=== PATIENT | female | born 1960 | race Caucasian/White ===

== ENCOUNTER → 2017-07-04 10:47 | Outpatient (CLI) | payer OTHER, SELFPAY ==
--- NOTE | 2017-07-04 10:53 | US_ITS ---
STUDY: SUPERFICIAL ULTRASOUND - LEFT BUTTOCK REASON FOR EXAM: Female, 57 years old. PALP LUMP LEFT BUTTOCK PATIENT HAS AN AREA OF INDENTATION WITH A BRUISE AND PALP LUMP AT THE CENTER OF THE INDENTATION OF THE LEFT BUTTOCK TECHNIQUE: A superficial ultrasound was performed with real-time and static benjamin-scale imaging. COMPARISON: None. FINDINGS: There is no evidence to suggest abscess formation. There are no focal fluid collections. Subcutaneous soft tissue nodule is visualized measuring 12 x 4 mm. Second nodule is noted in the subcutaneous fat measuring 11 x 4.1 mm. US/Ext Non Vasc Limited/Soft Tiss IMPRESSION: At the area of the palpable abnormality there are 2 nodules. These have the appearance of lymph nodes. Electronically Signed: Toño Florence MD at 9:52 EST , Service support ,
== END ==
PROVIDERS: Family Provider Preventive Medicine Occupational Medicine; PCP Preventive Medicine Occupational Medicine; Visit Provider Preventive Medicine Occupational Medicine
DX: R22.2 Localized swelling, mass and lump, trunk (principal)
CPT/HCPCS: 76882

== ENCOUNTER → 2017-07-29 11:46 | Outpatient (CLI) | payer OTHER, SELFPAY ==
--- NOTE | 2017-07-29 11:51 | US_ITS ---
STUDY: SUPERFICIAL ULTRASOUND - LEFT BUTTOCK. REASON FOR EXAM: Female, 57 years old. Palpable abnormality for biopsy. TECHNIQUE: A superficial ultrasound was performed with real-time and static benjamin-scale imaging. COMPARISON: Comparison is made with prior sonogram dated July 04, 2017. FINDINGS: The patient was scheduled for percutaneous biopsy. The biopsy was canceled due to the proximity of blood vessels to the nodule. US/Ext Non Vasc Limited/Soft Tiss IMPRESSION: Canceled biopsy due to the proximity of vascular structures adjacent to the palpable nodule. Electronically Signed: Darell Pang MD at 11:14 EST Tel [phone], Service support ,
== END ==
PROVIDERS: Family Provider Preventive Medicine Occupational Medicine; PCP Preventive Medicine Occupational Medicine; Visit Provider Surgery
DX: L98.9 Disorder of the skin and subcutaneous tissue, unspecified (principal)
CPT/HCPCS: 76882

== ENCOUNTER 2017-08-07 11:25 | Day surgery (SDC) | payer OTHER, SELFPAY ==
[2017-08-07 11:52] VITALS: BP 111/81; PULSE 73; RESP 16; TEMP 36.4; O2SAT 100; BMI 21.8
[2017-08-07 12:10] LABS: Bedside Glucose 79 mg/dL (70-110)
--- NOTE | 2017-08-07 13:00 | LES_PTH ---
PATIENT: FATMATA MUSE LOC: [facility] [place] U#:[id number] AGE/SX: 57/F ROOM: RE08/07/[address]: Dr. Steve Kelly MD : 1960 BED: DIS: 08/07/2017 SPEC #: [id number] RECD: 08/07/17 16:21 STATUS: VELASQUEZ JOSE RAFAEL #: [id number] MERY: 08/07/17 13:[address]: Steve Kelly DEPT: SURGICAL PATHOLOGY RECD BY: Eran Blanco ENTERED: 08/08/17 09:57 SP TYPE: Lesion OTHR DR: Dr. Conor Laguerre DO Tissues: Skin of buttock, NOS Procedures: Surgery Specimen Level III HEADER OPERATION: Excisional biopsy, lesion, buttocks PRE-OP DIAGNOSIS: Lesion of subcutaneous tissue TISSUE SUBMITTED: Lesion, left buttocks MICROSCOPIC DIAGNOSIS Lesion left buttocks, excisional biopsy: Skin with underlying mature adipose tissue. See comment. SJ:biju 08/11/17 COMMENT The subcutaneous lesion may represent lipoma. MICROSCOPIC DESCRIPTION Slides are reviewed. GROSS DESCRIPTION Received in fixative is one container labeled with the patient's name and designated lesion, left buttocks. The specimen consists of a piece of skin with underlying tissue measuring 4.5 x 2 cm and up to 3.5 cm in thickness. At one edge of the skin, a depressed area is noted. No other lesion is identified on the skin surface. Sections reveal yellow adipose cut surfaces without any mass lesion. Graphic Design Intern sections are submitted in four cassettes. Cassettes 1 and 2 contain the depressed skin area. / GILBERTO:biju 08/08/17 TC:1 CPT: 12347
[2017-08-07] MEDS: Bupivacaine Mpf 0.5% 30 ML VIAL (13:20)
[2017-08-07] MEDS: Cefazolin 2 GM in 0.9% Normal Saline 100 ML IV (13:20)
--- NOTE | 2017-08-07 13:37 | PCM.OPRPT ---
Problem List (1) Disorder of the skin and subcutaneous tissue, unspecified Status: Acute Report of Operation Date of Procedure: 08/07/17 Pre-Operative Diagnosis: l98.9 lesion of subcutaneous tissue to the left buttocks Post-Operative Diagnosis: Same Surgery/Procedure Performed:: 7 cm excision of a subcutaneous lesion in the left buttocks Type of Anesthesia:: Local MAC Anesthesiologist: Archie Wilson Description of Procedure: Patient was brought into the operating room. She was placed in the prone position. Under an excellent MAC anesthetic the left buttocks was sterilely prepped and draped in usual fashion. Local was injected. Elliptical incision was made around this lesion. I took this all the way down to the buttocks. I sent to pathology for permanent sectioning. He is electrocautery for good hemostasis. Length of this an elliptical incision was 7 cm in total length. I injected local in the surrounding tissues. I brought the wound together with a subcutaneous suture of 2-0 Vicryl ?3 deep dermal stitches of 3-0 Vicryl and interrupted 4-0 nylon on the skin sterile dressings were applied and the patient tolerated the procedure well. - Admit VTE Documentation VTE Present on Admission: No VTE Mechan Device Prophylaxis: SCD's VTE Pharm Prophylaxis ordered?: No Reason prophylaxis not ordered:: Treatment Not Indicated
--- NOTE | 2017-08-07 13:42 | PCM.DC.GS ---
Discharge Diet: Light diet - advance as tolerated - If you have questions about your diet instructions, please talk to your doctor. Discharge Activity: May Not Drive - for 1 week or while taking narcotic pain medicine. May shower in (days): 1 Lifting Restrictions: 10 pounds Call your doctor if your incision/area has: Continuous Slow Oozing, Sudden Increased Bleeding, Increased Pain/ Swelling, Increased Redness, Foul Smelling Discharge Call your doctor if you observe: Fever of 101 or Higher Suture Line Care: Avoid Pulling/Pushing, Avoid Pinching/Bending Additional Dressing/Incision Instructions:: Change or remove dressing in 4 days. Leave steri-strips in place for 1 week. Allergies/Adverse Reactions: Allergies ibuprofen [From Motrin] Allergy (Verified 08/07/17 11:51) EAR SWELLING metronidazole [From Flagyl] Allergy (Verified 08/07/17 11:51) DIFFICULTY BREATHING Metronidazole HCl [From Flagyl] Allergy (Verified 08/07/17 11:51) DIFFICULTY BREATHING nickel [Nickel] Allergy (Verified 08/07/17 11:51) RED, INFECTED NICKEL EARRINGS Medications to take at Discharge Aspirin [Aspirin, Baby] 81 mg PO DAILY@0800 04/09/13 Metformin HCl [Glucophage] 1,500 mg PO DINNER 04/09/13 Calcium Citrate/Magnesium/D3 [Calcium Citrate Chewable Wafer] 1 ea PO DAILY 07/23/16 Cholecalciferol (VIT D3) [Vitamin D3] 1,000 unit PO DAILY 07/23/16 Ranolazine [Ranexa] 500 mg PO BID 07/23/16 Rosuvastatin Calcium [Crestor] 5 mg PO DAILY 07/23/16 Zolpidem Tartrate [Ambien Cr] 6.25 mg PO PRN PRN 07/23/16 lisinopril 10 mg tablet 10 mg PO DAILY 90 Days #90 05/02/17 diclofenac sodium 75 mg tablet,delayed release 75 mg PO .prn PRN tab 07/15/17 lubiprostone 24 mcg capsule 24 mcg PO .prn PRN cap 07/15/17 Fluticasone 0.05% [Flonase Nasal [place]] 1 spray NASAL PRN PRN 08/06/17 Oxymetazoline 0.05% [Afrin (BKC)] 15 spray NASAL PRN PRN 08/06/17 Polyethylene Glycol 3350 [Miralax] 17 gm PO DAILY 08/06/17 Oxycodone HCl/Acetaminophen [Percocet 5/325] 1 - 2 tab PO Q4H PRN PRN 4 Days #30 tab 08/07/17 The following prescriptions were given: Oxycodone HCl/Acetaminophen [Percocet 5/325] 1 - 2 tab PO Q4H PRN PRN 4 Days #30 tab PRN Reason: Pain Primary Care Physician: Conor Laguerre DO [Primary Care Provider] - Please Follow Up With: Steve Kelly MD - [phone] When: Call to make an appointment to be seen in about 10 days.
[2017-08-07 13:55] VITALS: BP 111/81; BP 93/65; PULSE 74; RESP 16; TEMP 36.4; O2SAT 98
[2017-08-07 14:00] VITALS: BP 101/68; BP 111/81; PULSE 66; RESP 16; O2SAT 97
[2017-08-07 14:05] VITALS: BP 104/71; BP 111/81; PULSE 66; RESP 16; O2SAT 97
[2017-08-07 14:10] VITALS: BP 111/81; BP 120/71; PULSE 69; RESP 14; TEMP 36.2; O2SAT 97
[2017-08-07 15:34] VITALS: BP 111/81
== END 2017-08-07 15:25 | disposition home or self-care (01) ==
LOC: SDC 11:25 → AC 11:28
PROVIDERS: Family Provider Preventive Medicine Occupational Medicine; PCP Preventive Medicine Occupational Medicine; Visit Provider Surgery
PROC: (CPT 11406; principal; 2017-08-07 12:50)
DX: L98.9 Disorder of the skin and subcutaneous tissue, unspecified (principal); E78.5 Hyperlipidemia, unspecified; E11.9 Type 2 diabetes mellitus without complications; I25.10 Atherosclerotic heart disease of native coronary artery without angina pectoris; I10 Essential (primary) hypertension; Z95.1 Presence of aortocoronary bypass graft; Z87.891 Personal history of nicotine dependence; Z79.84 Long term (current) use of oral hypoglycemic drugs; Z79.82 Long term (current) use of aspirin; Z79.899 Other long term (current) drug therapy
CPT/HCPCS: 00300; 11406; 12032; 82962; 88304; 88305; J7120; J2405

== ENCOUNTER → 2017-12-03 06:23 | Outpatient (CLI) | payer OTHER, SELFPAY ==
--- NOTE | 2017-12-03 12:26 | STRESSREP ---
Stress Test Report Exercise myocardial perfusion stress test. 57-year-old lady with a history of coronary artery disease status post carotid bypass surgery with chest pain. Medications aspirin metformin lisinopril Crestor Ranexa vitamin D3. Stress protocol: Resting EKG demonstrates sinus rhythm with rate of 60 bpm resting blood pressure is 104/[address] changes are noted. The patient exercised according to the regular Lalo protocol for a total duration of 8 minutes and 30 seconds completing 2 minutes and 30 seconds to stage III of the Lalo protocol the maximum heart rate attained was 150 bpm which was 92% of maximum predicted heart rate the maximum workload attained was 10.1 metabolic equivalents. The patient maintained sinus rhythm throughout the recording. At rest there were no ST or T-wave changes noted suggest ischemia peak exercise nonspecific ST-T wave changes were noted. No clinical angina was noted the test was terminated due to shortness of breath. Myocardial perfusion protocol. 11.7 mCi of technetium 99m sestamibi was injected at rest. The patient exercised for 8 minutes and 30 seconds attaining 92% of maximum predicted heart rate and a workload of 10.1 metabolic equivalents. At peak exercise 33.6 mCi of technetium 99m sestamibi was injected stress images were obtained stress and rest images were reconstructed and compared in the short axis vertical long and horizontal long axis. Gated images were also obtained pre- Perfusion SPECT analysis: Review of the stress images demonstrate normal uptake of tracer noted in all areas of the myocardium. The resting images similarly demonstrate normal uptake of tracer noted in all areas of the myocardium no reversibility is noted suggest ischemia. Gated SPECT analysis: The gated ejection fraction is 74%. Conclusion: Normal exercise myocardial perfusion stress test at a high workload. Preserved ejection fraction No clinical angina noted.
== END ==
LOC: CVS 06:25
PROVIDERS: Family Provider Preventive Medicine Occupational Medicine; PCP Preventive Medicine Occupational Medicine; Visit Provider Internal Medicine Cardiovascular Disease
DX: R07.9 Chest pain, unspecified (principal); I25.10 Atherosclerotic heart disease of native coronary artery without angina pectoris
CPT/HCPCS: 78452; 93017; A9500; A4216

== ENCOUNTER → 2018-11-08 | Outpatient (CLI) | payer OTHER, SELFPAY ==
[2018-11-08 09:13] VITALS: BMI 24.3
[2018-11-08 15:02] LABS: Mucous, Urine 0 SEEN /hpf (<or=2+)
[2018-11-08 15:13] LABS: Color, Urine Brown (Yellow); Glucose, Dipstick Normal (Normal); Ketone-Dipstick 5 mg/dl (Negative); Leukocyte Esterase-Dipstick 500 /ul (Negative); Nitrite-Dipstick Positive (Negative); Occult Blood-Urine 250 /ul (Negative); Protein-Dipstick 100 mg/dl (Negative); Urine Bilirubin Dipstick Negative (Negative); Urine Clarity Cloudy (Clear); Urine Urobilinogen Normal (Normal)
[2018-11-08 15:24] LABS: Bacteria 3+ /hpf (None Seen); Red Blood Cells-Urine 25-50 SEEN /hpf (0-5); Squamous Epithelial Cells - UA 0-5 SEEN /hpf (5-10); White Blood Cells 25-50 SEEN /hpf (0-5)
== END | disposition home or self-care (01) ==
PROVIDERS: Family Provider Preventive Medicine Occupational Medicine; PCP Preventive Medicine Occupational Medicine; Referring Provider Physician Assistant Medical; Visit Provider Physician Assistant Medical
DX: R30.0 Dysuria (principal)
CPT/HCPCS: 81001; 87086; 87088; 87186

== ENCOUNTER → 2018-12-11 | Outpatient (CLI) | payer OTHER, SELFPAY ==
[2018-12-11 16:15] VITALS: BMI 24.3
[2018-12-13 14:49] LABS: Bacteria 0 SEEN /hpf (None Seen); Mucous, Urine 0 SEEN /hpf (<or=2+); Red Blood Cells-Urine 0 SEEN /hpf (0-5); White Blood Cells 0 SEEN /hpf (0-5)
[2018-12-13 15:27] LABS: Color, Urine Yellow (Yellow); Glucose, Dipstick Normal (Normal); Ketone-Dipstick Negative (Negative); Leukocyte Esterase-Dipstick Negative /ul (Negative); Nitrite-Dipstick Negative (Negative); Occult Blood-Urine Negative /ul (Negative); Protein-Dipstick Negative (Negative); Urine Bilirubin Dipstick Negative (Negative); Urine Clarity Clear (Clear); Urine Urobilinogen Normal (Normal)
[2018-12-13 15:54] LABS: Squamous Epithelial Cells - UA 0-5 SEEN /hpf (5-10)
== END | disposition home or self-care (01) ==
LOC: LABSPEC 12-13 14:48
PROVIDERS: Family Provider Preventive Medicine Occupational Medicine; PCP Preventive Medicine Occupational Medicine; Visit Provider Physician Assistant Surgical
DX: R39.15 Urgency of urination (principal)
CPT/HCPCS: 81001; 87086; 87088

== ENCOUNTER → 2018-12-22 | Outpatient (CLI) | payer OTHER, SELFPAY ==
[2018-12-11 16:15] VITALS: BMI 24.3
[2018-12-22 08:10] LABS: AST(SGOT) 13 U/L (15-37); Alanine Aminotransfer ALT/SGPT 28 U/L (13-56); Albumin, Serum 3.6 g/dL (3.2-5.0); Alkaline Phosphatase 70 U/L (45-117); Bilirubin, Direct 0.12 mg/dL (0.00-0.30); Cholesterol 170 mg/dL (200); Globulin 3.1 g/dL (2.2-4.2); High Density Lipoprotein 51 mg/dL; Protein, Total 6.7 g/dL (6.4-8.2); Triglycerides 124 mg/dL; Very Low Density Lipoprotein 25 mg/dL (5-40)
== END | disposition home or self-care (01) ==
LOC: LAB 06:15
PROVIDERS: Family Provider Family Medicine; PCP Family Medicine; Referring Provider Internal Medicine Cardiovascular Disease; Visit Provider Internal Medicine Cardiovascular Disease
DX: E11.69 Type 2 diabetes mellitus with other specified complication (principal); E78.5 Hyperlipidemia, unspecified
CPT/HCPCS: 36415; 80061; 80076

== ENCOUNTER → 2019-03-20 | Outpatient (CLI) | payer OTHER, SELFPAY ==
[2019-01-31 08:20] VITALS: BMI 24.6
--- NOTE | 2019-03-20 13:55 | RAD_ITS ---
STUDY: X-RAY CHEST REASON FOR EXAM: Female, 58 years old. Shortness of breath, right-sided chest pain. History of CABG and stent insertion. TECHNIQUE: PA and lateral views of the chest. COMPARISON: 06/10/2014. FINDINGS: The lungs are clear and expanded. There is no demonstrated pleural abnormality. Sternal cerclage wires and vascular clips are present from a prior sternotomy and coronary artery bypass graft procedure (CABG). Heart maintains normal size. Normal mediastinum and lorena. Normal visualized pulmonary arteries. There is atherosclerotic calcification of the aortic arch with tortuosity. There are mild degenerative changes of the visualized thoracic spine. There is old left-sided rib fracture. There is no demonstrated abnormality of the visualized soft tissue structures of the upper abdomen. RAD/Chest PA and Lateral IMPRESSION: Status post CABG, otherwise no acute cardia pulmonary process seen. Electronically Signed: Sherri Houston MD at 0:49 EDT , Service support ,
== END | disposition home or self-care (01) ==
PROVIDERS: Family Provider Family Medicine; PCP Family Medicine; Referring Provider Family Medicine; Visit Provider Family Medicine
DX: R07.89 Other chest pain (principal)
CPT/HCPCS: 71046

== ENCOUNTER → 2019-05-06 06:27 | Outpatient (CLI) | payer OTHER, SELFPAY ==
[2019-03-24 13:30] VITALS: BMI 24.7
--- NOTE | 2019-05-06 06:28 | ECHOD_ITS ---
Reason For Study: CHEST PAIN Procedure This was a 2D Doppler, Color Flow transthoracic echocardiogram. Exam performed in department. Left Ventricle Normal LV size. Left ventricular systolic function is normal. The estimated ejection fraction is 65 %. Stage 1 diastolic dysfunction. No regional wall motion abnormalities noted. Right Ventricle Normal RV size. Normal systolic function. Atria Normal left atrium. Normal right atrium. Mitral Valve Normal mitral valve. Tricuspid Valve Normal tricuspid valve. Aortic Valve Trisinus/trileaflet aortic valve. Pulmonic Valve Normal pulmonic valve. Great Vessels Normal aortic root. The pulmonary artery is normal size. Normal inferior vena cava. Pericardium/Pleural No pericardial effusion. MMode/2D Measurements & Calculations LVIDd: 3.9 cm IVSd: 1.0 cm Ao root diam: 3.5 cm LVIDs: 2.7 cm LVPWd: 0.93 cm RVDd: 3.2 cm FS: 30.5 % LAV(MOD-bp): 33.1 ml LA A4 area: 15.0 cm2 LA dimension(2D): 3.2 cm LAV(MOD-bp) Indexed: 18.9 ml/m2 LAV(MOD-sp2): 30.0 ml LAV(MOD-sp4): 36.6 ml RA A4 area: 9.6 cm2 Time Measurements MV dec time: 0.25 sec Doppler Measurements & Calculations MV E max josé: 66.4 cm/sec Lat Peak E' José: 7.9 cm/sec Med Peak E' José: 6.2 cm/sec MV A max josé: 76.4 cm/sec E/E' lat: 8.4 E/E' med: 10.7 MV E/A: 0.87 Ao V2 max: 122.9 cm/sec LV V1 max: 104.3 cm/sec TR max josé: 212.6 cm/sec Ao max P.0 mmHg LV V1 max P.4 mmHg TR max P.1 mmHg Interpretation Summary Normal LV size. Left ventricular systolic function is normal. The estimated ejection fraction is 65 %. Stage 1 diastolic dysfunction. Ordering Physician: Dennis Candelaria/Brent Cesar Referring Physician: LEONCIO BAEZ Performed By: Ani Mckeon, ZAC, RVT
--- NOTE | 2019-05-06 10:37 | STRESSREP ---
Stress Test Report Exercise stress test. 58-year-old lady with a history of chest pain. Stress protocol Resting EKG demonstrates sinus bradycardia with a rate of 54 beats per normal intervals are noted resting blood pressures 110/80 mmHg. T wave inversions are noted laterally. The patient exercised according to regular Lalo protocol for a total duration of 7 minutes and 30 seconds the maximum heart rate attained was 150 bpm which was 93% of maximal predicted heart rate the maximum workload was 9.2 metabolic equivalents. At rest nonspecific ST-T wave changes were noted at peak exercise less than [address] depression were noted in leads II, III and aVF V5 and V6 which did not meet the criteria for ischemia. No obvious angina was noted. Resting blood pressure was 110/80 with a peak blood pressure 172/94. Myocardial perfusion protocol. 11.0 mCi of technetium 99m sestamibi was injected at rest. Patient exercised according to regular Lalo protocol for 7 minutes and 30 seconds at peak exercise 33.0 mCi of technetium 99m sestamibi was injected stress images were obtained stress and rest images were reconstructed and compared in the short axis vertical long horizontal long axis. Gated images were also obtained Perfusion SPECT analysis: Review of the stress images demonstrate normal uptake of tracer noted in all areas of myocardium the rest images similar demonstrate normal uptake of tracer noted in all areas of myocardium. No areas of reversibility are noted just ischemia no previous infarct is noted. Gated SPECT analysis: The gated ejection fraction is noted to be 80%. Conclusion: Normal exercise myocardial perfusion stress test at a moderate workload. Preserved ejection fraction.
== END ==
LOC: CVS 06:27
PROVIDERS: Family Provider Family Medicine; PCP Family Medicine; Referring Provider Nurse Practitioner Family; Visit Provider Nurse Practitioner Family
DX: I25.118 Atherosclerotic heart disease of native coronary artery with other forms of angina pectoris (principal); I10 Essential (primary) hypertension; E78.5 Hyperlipidemia, unspecified; Z95.1 Presence of aortocoronary bypass graft; Z95.5 Presence of coronary angioplasty implant and graft; R07.9 Chest pain, unspecified
CPT/HCPCS: 78452; 93017; 93306; A9500; A4216

== ENCOUNTER → 2019-08-09 14:48 | Outpatient (CLI) | payer OTHER, SELFPAY ==
[2019-06-06 11:37] VITALS: BMI 24.7
[2019-08-09 17:44] LABS: Absolute Lymphocyte Count 1.45 X10^3/uL (0.83-4.51); Absolute Neutrophil Count 2.5 X10^3/uL (2.0-7.7); Basophil# 0.05 X10^3/uL; Basophil% 0.9 % (0-1); Eosinophil# 1.39 X10^3/uL; Hematocrit 40.1 % (37-47); Hemoglobin 13.1 g/dL (12.0-15.0); Lymphocyte # 1.45 X10^3/ul (4.0); Mean Corp Hgb Conc 32.7 g/dL (32-36); Mean Corpuscular Hgb 30.5 pg (27.0-32.0); Mean Corpuscular Volume 93.3 fL (81-99); Mean Platelet Vol. 11.6 fl (6.2-12.0); Monocyte# 0.35 X10^3/uL; NRBC Flagged by Analyzer 0 % (0-5); Neutrophil # 2.54 X10^3/uL (2.7-7.7); Neutrophil % 43.9 % (47-70); Platelet Count 149 K/mm3 (150-450); RBC Distribution Width CV 14.1 % (11.6-14.6); RBC Distribution Width SD 47.8 fl (35.1-43.9); White Blood Count 5.8 K/mm3 (4.4-11.0)
[2019-08-09 18:02] LABS: Erythrocyte Sedimentation Rate 3 mm/hr (0-30)
[2019-08-09 18:12] LABS: ALB/GLOB Ratio 1.4 RATIO (0.9-2.4); AST(SGOT) 23 U/L (15-37); Alanine Aminotransfer ALT/SGPT 39 U/L (13-56); Albumin, Serum 3.8 g/dL (3.2-5.0); Alkaline Phosphatase 79 U/L (45-117); Anion Gap 4 (5-15); BUN 20 mg/dL (7-18); BUN/Creat Ratio 24.1 RATIO (10-20); CRP < 2.90 mg/L (0.0-3.0); Calcium,Total 9.1 mg/dL (8.5-10.1); Chloride 111 mmol/L (98-107); Creatinine, Serum 0.83 mg/dL (0.55-1.02); EST Glomerular Filtration Rate 75 mL/min (>60); Est Glom Filt Rate - Afr Amer 90 mL/min (>60); Globulin 2.8 g/dL (2.2-4.2); Glucose 143 mg/dL (74-106); Potassium 4.2 mmol/L (3.5-5.1); Protein, Total 6.6 g/dL (6.4-8.2); Rheumatoid Factor < 10.0 IU/mL (<15); Sodium Level 143 mmol/L (136-145)
[2019-08-10 09:18] LABS: Hepatitis B Surface Antibody Non-Reactive; Hepatitis B Surface Antigen Non-Reactive (Nonreactive); Hepatitis C Antibody Non-Reactive (Nonreactive)
[2019-08-11 14:07] LABS: SJOGREN'S Anti-SS-A test < 0.2 AI (0.0-0.9); SJOGREN'S Anti-SS-B test < 0.2 AI (0.0-0.9)
[2019-08-11 15:54] LABS: ANTINUCLEAR ANTIBODIES DIRECT Negative (Negative)
[2019-08-12 11:30] LABS: CCP IgG Antibodies 7 units (0-19); Hepatitis B Core AB IgM Negative (Negative)
== END ==
PROVIDERS: PCP Family Medicine; Referring Provider Internal Medicine Rheumatology; Visit Provider Internal Medicine Rheumatology
DX: L40.59 Other psoriatic arthropathy (principal); M19.041 Primary osteoarthritis, right hand
CPT/HCPCS: 36415; 80053; 85025; 85652; 86038; 86140; 86200; 86235; 86431; 86705; 86706; 86803; 87340

== ENCOUNTER → 2019-10-25 15:19 | Outpatient (CLI) | payer OTHER, SELFPAY ==
[2019-08-30 11:56] VITALS: BMI 24.7
[2019-10-25 17:54] LABS: Absolute Lymphocyte Count 1.51 X10^3/uL (0.83-4.51); Basophil# 0.04 X10^3/uL; Eosinophil# 0.18 X10^3/uL; Eosinophils% 4.3 % (0-5); Hematocrit 39.7 % (37-47); Hemoglobin 12.9 g/dL (12.0-15.0); Lymphocyte # 1.51 X10^3/ul (4.0); Lymphocyte % 36.1 % (19-41); Mean Corp Hgb Conc 32.5 g/dL (32-36); Mean Corpuscular Hgb 32.3 pg (27.0-32.0); Mean Corpuscular Volume 99.3 fL (81-99); Mean Platelet Vol. 11.8 fl (6.2-12.0); Monocyte# 0.42 X10^3/uL; NRBC Flagged by Analyzer 0 % (0-5); Neutrophil # 2.02 X10^3/uL (2.7-7.7); Neutrophil % 48.4 % (47-70); Platelet Count 206 K/mm3 (150-450); RBC Distribution Width CV 14.9 % (11.6-14.6); RBC Distribution Width SD 54.4 fl (35.1-43.9); White Blood Count 4.2 K/mm3 (4.4-11.0)
[2019-10-25 18:03] LABS: ALB/GLOB Ratio 1.3 RATIO (0.9-2.4); AST(SGOT) 16 U/L (15-37); Alanine Aminotransfer ALT/SGPT 41 U/L (13-56); Albumin, Serum 3.9 g/dL (3.2-5.0); Alkaline Phosphatase 68 U/L (45-117); Anion Gap 5 (5-15); BUN 24 mg/dL (7-18); BUN/Creat Ratio 23.8 RATIO (10-20); Calcium,Total 9.2 mg/dL (8.5-10.1); Chloride 106 mmol/L (98-107); Creatinine, Serum 1.01 mg/dL (0.55-1.02); EST Glomerular Filtration Rate 59 mL/min (>60); Est Glom Filt Rate - Afr Amer 72 mL/min (>60); Glucose 82 mg/dL (74-106); Potassium 4.3 mmol/L (3.5-5.1); Protein, Total 6.9 g/dL (6.4-8.2); Sodium Level 141 mmol/L (136-145)
== END ==
LOC: MTLAB 15:20
PROVIDERS: PCP Family Medicine; Referring Provider Internal Medicine Rheumatology; Visit Provider Internal Medicine Rheumatology
DX: L40.59 Other psoriatic arthropathy (principal); M19.041 Primary osteoarthritis, right hand; L40.8 Other psoriasis; M25.512 Pain in left shoulder; I10 Essential (primary) hypertension; E11.9 Type 2 diabetes mellitus without complications; I25.10 Atherosclerotic heart disease of native coronary artery without angina pectoris; H40.9 Unspecified glaucoma; E78.5 Hyperlipidemia, unspecified; Z79.899 Other long term (current) drug therapy
CPT/HCPCS: 36415; 80053; 85025

== ENCOUNTER → 2021-01-09 06:58 | Outpatient (CLI) | payer OTHER, SELFPAY ==
[2020-11-07 11:35] VITALS: BMI 28.5
--- NOTE | 2021-01-09 17:10 | STRESSREP ---
Stress Test Report Exercise my cardial perfusion stress test. 60-year-old lady with a history of chest pain and coronary artery disease. Medications aspirin rosuvastatin ranolazine lisinopril. Stress protocol: Resting EKG demonstrates sinus bradycardia with a rate of [address] changes noted in the lateral umaña. Resting blood pressure is 128/70 mmHg. The patient exercised according to the regular Lalo protocol for total duration of 6 minutes and 30 seconds. The maximum heart rate attained was 136 bpm which was 85% of max infected heart rate the maximum workload was 8.5 metabolic equivalents. At rest with nonspecific ST changes noted at peak exercise upsloping ST changes were noted in the inferolateral leads which did not meet the criteria for ischemia being less than 1 mm depressed. The peak blood pressure was 160/70 mmHg. The test was terminated due to dyspnea. Myocardial perfusion protocol. 11.0 mCi of technetium 99m sestamibi was injected at rest. The patient exercised according to regular Lalo protocol for 6-1/2 minutes. At peak exercise 33.0 mCi of technetium 99m sestamibi was injected stress images were obtained stress and rest images were reconstructed and compared in the short axis vertical long and horizontal long axis. Gated images were also obtained. Perfusion SPECT analysis: Review of the stress images demonstrate normal uptake of tracer noted in all areas of the myocardium. The resting images similarly demonstrate normal uptake of tracer noted in all areas of the myocardium. No areas of reversibility are noted to suggest ischemia and no previous infarct is noted. Gated SPECT analysis: The gated ejection fraction is 75%. Conclusion: Normal exercise myocardial perfusion stress test at a moderate workload. Preserved ejection fraction.
== END ==
PROVIDERS: PCP Family Medicine; Visit Provider Nurse Practitioner Family
DX: I25.118 Atherosclerotic heart disease of native coronary artery with other forms of angina pectoris (principal); Z95.1 Presence of aortocoronary bypass graft; Z95.5 Presence of coronary angioplasty implant and graft; I10 Essential (primary) hypertension; E78.5 Hyperlipidemia, unspecified; R06.00 Dyspnea, unspecified; R53.83 Other fatigue
CPT/HCPCS: 78452; 93017; A9500

== ENCOUNTER 2021-01-18 15:47 | Emergency (ER) | payer OTHER, SELFPAY ==
[2021-01-18 15:48] VITALS: BP 120/89; PULSE 71; RESP 18; TEMP 36.6; O2SAT 98; BMI 25.2
--- NOTE | 2021-01-18 17:18 | CT_ITS ---
STUDY: CT BRAIN WITHOUT CONTRAST REASON FOR EXAM: Female, 60 years old. Paresthesias RADIATION DOSAGE (If Supplied By Facility): CTDIvol = ( 44.99 ) mGy, DLP = ( 745.49 ) mGycm TECHNIQUE: Transaxial CT imaging of the brain was performed without administration of intravenous contrast material. Individualized dose optimization techniques were used for this CT. COMPARISON: No relevant priors. FINDINGS: Normal soft tissue structures. Normal calvarium. Ventricular asymmetry is noted likely due to developmental variant. Mild periventricular white matter disease likely ischemic change secondary to small vessel disease. Normal basal ganglia and thalami. Normal brainstem. Normal cerebellum. Partial empty sella deformity likely of no significance There is no intracranial hemorrhage. There are no findings of an acute ischemic infarction. Normal visualized paranasal sinuses. CT/Brain/Head without Contrast IMPRESSION: Mild periventricular white matter disease. No evidence for acute bleed. If concern for acute infarct MRI recommended Electronically Signed: Felipe Johnson MD at 17:52 EDT , Service support ,
--- NOTE | 2021-01-18 17:19 | EX.ED.DYSGE1 ---
HPI History of Present Illness Chief Complaint: Numb/Ting Informant: patient Onset/Context/Timing Onset: Weeks (3) Context: Gradual Onset Timing: Continuous Quality: Tingling Location: Bilateral hands, feet, tongue, and lower face Worsened by: Nothing Relieved by: Nothing Narrative Narrative: Patient presents with paresthesias and fatigue that has been getting worse over the past 3 weeks. Patient states she ate and then into her hands. Patient states she then started having some tingling in her tongue but then her lower face. Patient denies any weakness. Patient denies any difficulty swallowing or difficulty talking. Patient states nothing makes her symptoms better or worse. Patient states initially they were intermittent but now they have been constant. Patient also had a couple episodes of blurry vision when she woke up in the morning. Patient had a stress test 9 days ago which was normal. Patient states her blood sugars have all been well controlled. Patient states her hemoglobin A1c has been normal every time it has been checked. [facility] Medical History Acute appendicitis Atherosclerotic heart disease of [place] coronary artery with other forms of angina pectoris COVID-19 virus detected (05/27/20) Disorder of the skin and subcutaneous tissue, unspecified Dysuria Essential (primary) hypertension History of chicken pox History of chlamydia infection History of ectopic Hyperlipidemia Hyperlipidemia due to type 2 diabetes mellitus Persistent cough Type 2 diabetes mellitus Urinary urgency Home Medications aspirin 81 mg PO DAILY@0800 04/09/13 [History Last Taken 07/30/17] docusate sodium 50 mg capsule 50 mg PO DAILY 06/24/18 [History Last Taken Unknown] azelastine 137 mcg (0.1 %) nasal spray aerosol 1 spray INTRANASAL DAILY PRN 08/30/19 [History Last Taken Unknown] calcium carbonate 600 mg (1,500 mg)-vitamin D3 500 unit capsule 1 cap PO DAILY 08/30/19 [History Last Taken Unknown] folic acid 1 mg tablet 2 mg PO DAILY tab 08/30/19 [History Last Taken Unknown] multivitamin 1 tab PO DAILY 08/30/19 [History Last Taken Unknown] latanoprost 0.005 % eye drops 1 drp OPHTHALMIC ml 04/06/20 [History Last Taken Unknown] metformin 500 mg tablet,extended release 24 hr 1,000 mg PO DINNER tab 04/06/20 [History Last Taken Unknown] methotrexate sodium 2.5 mg tablet 15 mg PO YUSUF tab 04/06/20 [History Last Taken Unknown] lisinopril 10 mg tablet 10 mg PO DAILY #90 tab 10/04/20 [Rx Last Taken Unknown] rosuvastatin 20 mg tablet 20 mg PO DAILY #90 tab 11/07/20 [Rx Last Taken Unknown] Allergy/AdvReac Type Severity Reaction Status Date / Time Bleach (Sodium Hypochlorite) Allergy Mild unknown Verified 01/18/21 15:50 ibuprofen [From Motrin] Allergy EAR Verified 01/18/21 15:50 SWELLING Metronidazole HCl Allergy DIFFICULTY Verified 01/18/21 15:50 [From Flagyl] BREATHING nickel [Nickel] Allergy RED, Verified 01/18/21 15:50 INFECTED beta donna AdvReac Unknown unknown, Uncoded 01/18/21 15:50 possibly severe bradycardia Family History Mother CAD (coronary artery disease) Sister Hypertension Father Colon cancer Myocardial infarction Brother Thyroid disorder Surgical History H/O coronary artery bypass surgery (06/14/12) History of bladder repair surgery History of History of coronary artery stent placement (06/21/14) History of total hysterectomy Social History Smoking Status: Former smoker second hand exposure: No alcohol intake: former substance use type: former substance user and marijuana caffeine: Yes Type: carbonated beverages and coffee what type of physical activity do you participate in: none seatbelt use: always do you feel safe at home: Yes ROS ROS ED Constitutional Constitutional ED: Denies chills or fever(s) Eyes Eyes: Reports blurry vision; Denies diplopia ENT ENT ED: Denies rhinorrhea or sore throat Cardiovascular Cardiovascular: Reports chest pain; Denies palpitations Respiratory/Chest Respiratory/Chest: Denies cough or dyspnea Gastrointestinal Gastrointestinal: Denies nausea or vomiting Genitourinary Genitourinary ED: Denies dysuria or hematuria Musculoskeletal Musculoskeletal: Reports back pain and neck pain Integumentary Denies abscess or rash Neurologic Neurologic: Reports headache(s) and paresthesias; Denies weakness Allergic/Immunologic Allergic/Immunologic ED: Denies mouth swelling or urticaria EXAM Physical Exam Const Vital Signs: 01/18/21 15:48 01/18/21 17:32 Temperature 97.8 F Temperature Source Temporal Pulse Rate 71 Respiratory Rate 18 Respiratory Effort Normal Non-Labored Respiratory Pattern Normal Blood Pressure 120/89 H Blood Pressure Mean 99 Pulse Ox 98 Oxygen Delivery Method Room Air Positive well nourished and well developed General Appearance ED: well developed HEENT Reports moist mucous membranes Neck supple and no JVD Resp normal respiratory effort and clear to auscultation bilaterally Cardio regular rate, regular rhythm and no murmurs GI normal to inspection, nondistended, normoactive bowel sounds and non-tender Palpation: soft Extremity normal to inspection General Extremety ED: Negative for edema or tenderness General Extremity: Negative for edema Neuro oriented x3, CN's II-XII intact bilaterally and no sensory deficits noted Sensorium / Orientation: alert Motor Exam: strength 5/5 throughout Psych mental status grossly normal Skin no rashes or lesions noted MDM MDM MDM Narrative Medical decision making narrative: CT scan of the brain was obtained. There is mild periventricular white matter disease. There is no acute infarct or bleed. This was interpreted by the radiologist and reviewed by myself. CBC and basic metabolic profile were obtained and were within normal limits. Patient was advised of her findings. Patient was advised that she would need further work-up as an outpatient. Patient was instructed to follow-up with her primary care physician in 5 to 7 days. Patient understood and was agreeable with the plan. All questions were answered. Lab Data Attestation: I reviewed the patient's lab results. Labs: Laboratory Results - last 24 hr 01/18/21 01/18/21 17:20 17:20 WBC 4.8 RBC 3.95 L Hgb 12.7 Hct 38.6 MCV 97.7 MCH 32.2 H MCHC 32.9 RDW Std Deviation 48.8 H RDW Coeff of [place] 13.7 Plt Count 182 MPV 11.1 Immature Gran % (Auto) 0.200 Neut % (Auto) 57.5 Lymph % (Auto) 29.1 [place] % (Auto) 9.9 Eos % (Auto) 2.7 Baso % (Auto) 0.6 Absolute Neuts (auto) 2.8 Absolute Lymphs (auto) 1.41 Nucleated RBC % 0 Sodium 140 Potassium 4.3 Chloride 108 H Carbon Dioxide 30.0 Anion Gap 2 L BUN 23 H Creatinine 0.79 Estim Creat Clear Calc 67.29 Est GFR (MDRD) Af Amer 95 Est GFR (MDRD) Non-Af 78 BUN/Creatinine Ratio 29.1 H Glucose 104 Calcium 9.8 Radiography Diagnostic Testing: Radiology Impression Brain CT 01/18/21 17:18 IMPRESSION: Mild periventricular white matter disease. No evidence for acute bleed. If concern for acute infarct MRI recommended Electronically Signed: Felipe Johnosn MD at 17:52 EDT , Service support , Discharge Plan Triage Chief Complaint: Numb/Ting ED Provider: Archie Hathaway Dx/Rx/DC Orders Clinical Impression: Paresthesias Instructions: ED Paraesthesias Prescriptions: No Action docusate sodium 50 mg capsule 50 mg PO DAILY RF: 0 azelastine 137 mcg (0.1 %) aerosol,spray 1 spray INTRANASAL DAILY PRN (Reason: Congestion) RF: 0 multivitamin [Daily Multi-Vitamin] Tablet 1 tab PO DAILY RF: 0 folic acid 1 mg tablet 2 mg PO DAILY RF: 0 calcium carbonate-vitamin D3 [Calcium 600 with Vitamin D3] 600 mg(1,500mg) -500 unit capsule 1 cap PO DAILY RF: 0 methotrexate sodium 2.5 mg tablet 15 mg PO YUSUF RF: 0 metformin 500 mg tablet extended release 24 hr 1,000 mg PO DINNER RF: 0 latanoprost 0.005 % drops 1 drp OPHTHALMIC RF: 0 rosuvastatin 20 mg tablet 20 mg PO DAILY Qty: 90 RF: 3 aspirin 81 MG tablet,chewable 81 mg PO DAILY@0800 RF: 0 lisinopril 10 mg tablet 10 mg PO DAILY Qty: 90 RF: 4 Primary Care Provider: Praveen Anderson Referrals: Praveen Anderson DO [Primary Care Provider] - 3-5 Days Disposition Disposition: Home, Self Care
[2021-01-18 17:39] LABS: Absolute Lymphocyte Count 1.41 X10^3/uL (0.83-4.51); Absolute Neutrophil Count 2.8 X10^3/uL (2.0-7.7); Basophil# 0.03 X10^3/uL; Basophil% 0.6 % (0-1); Eosinophil# 0.13 X10^3/uL; Eosinophils% 2.7 % (0-5); Hematocrit 38.6 % (37-47); Hemoglobin 12.7 g/dL (12.0-15.0); Lymphocyte # 1.41 X10^3/ul (0.83-4.51); Lymphocyte % 29.1 % (19-41); Mean Corp Hgb Conc 32.9 g/dL (32-36); Mean Corpuscular Hgb 32.2 pg (27.0-32.0); Mean Corpuscular Volume 97.7 fL (81-99); Mean Platelet Vol. 11.1 fl (6.2-12.0); Monocyte# 0.48 X10^3/uL; Monocyte% 9.9 % (0-10); NRBC Flagged by Analyzer 0 % (0-5); Neutrophil # 2.78 X10^3/uL (2.7-7.7); Neutrophil % 57.5 % (47-70); Platelet Count 182 K/mm3 (150-450); RBC Distribution Width CV 13.7 % (11.6-14.6); RBC Distribution Width SD 48.8 fl (35.1-43.9); Red Blood Count 3.95 M/mm3 (4.2-5.4); White Blood Count 4.8 K/mm3 (4.4-11.0)
[2021-01-18 18:05] LABS: Anion Gap 2 (5-15); BUN 23 mg/dL (7-18); BUN/Creat Ratio 29.1 RATIO (10-20); Calcium,Total 9.8 mg/dL (8.5-10.1); Chloride 108 mmol/L (98-107); Creatinine, Serum 0.79 mg/dL (0.55-1.02); EST Glomerular Filtration Rate 78 mL/min (>60); Est Glom Filt Rate - Afr Amer 95 mL/min (>60); Estimated Creatinine Clearance 67.29 ml/min; Glucose 104 mg/dL (74-106); Potassium 4.3 mmol/L (3.5-5.1); Sodium Level 140 mmol/L (136-145)
== END 2021-01-18 19:27 | disposition home or self-care (01) ==
PROVIDERS: Emergency Provider Emergency Medicine; PCP Family Medicine
DX: R20.2 Paresthesia of skin (principal); I25.118 Atherosclerotic heart disease of native coronary artery with other forms of angina pectoris; I10 Essential (primary) hypertension; K35.80 Unspecified acute appendicitis; E78.5 Hyperlipidemia, unspecified; E11.69 Type 2 diabetes mellitus with other specified complication; Z87.59 Personal history of other complications of pregnancy, childbirth and the puerperium; Z87.891 Personal history of nicotine dependence; Z79.84 Long term (current) use of oral hypoglycemic drugs; Z79.82 Long term (current) use of aspirin; Z79.899 Other long term (current) drug therapy; Z86.16 Personal history of COVID-19
CPT/HCPCS: 70450; 80048; 85025; 87426; 99285; A4216

== ENCOUNTER → 2021-04-24 16:30 | Outpatient (CLI) | payer OTHER, SELFPAY ==
[2021-04-24 18:06] LABS: AST(SGOT) 24 U/L (15-37); Alanine Aminotransfer ALT/SGPT 44 U/L (13-56); Albumin, Serum 3.8 g/dL (3.2-5.0); Alkaline Phosphatase 90 U/L (45-117); Bilirubin, Direct 0.14 mg/dL (0.00-0.30); GGTP 17 U/L (5-55); Globulin 3.1 g/dL (2.2-4.2); Protein, Total 6.9 g/dL (6.4-8.2)
== END ==
PROVIDERS: PCP Family Medicine; Referring Provider Internal Medicine Gastroenterology; Visit Provider Internal Medicine Gastroenterology
DX: K76.0 Fatty (change of) liver, not elsewhere classified (principal)
CPT/HCPCS: 36415; 80076; 82977

== ENCOUNTER → 2021-05-08 11:49 | Outpatient (CLI) | payer OTHER, SELFPAY | PROVIDERS: PCP Family Medicine; Referring Provider Psychiatry & Neurology Neurology; Visit Provider Psychiatry & Neurology Neurology | DX: U07.1 COVID-19 (principal) | CPT/HCPCS: 36415; 86769 ==

== ENCOUNTER 2021-06-06 09:48 | Outpatient (CLI) | payer OTHER, SELFPAY ==
--- NOTE | 2021-06-06 12:11 | NEURO ---
NCS and/or EMG Patient Report Ordering Doctor: George Lee DATE OF SERVICE: 06/06/21 Indication: Subacute onset of paresthesias in December 2020. There is no associated numbness, weakness or impaired coordination. The only symptom is pins and needles feeling continuously in the face, bilateral hands and bilateral legs. Evaluate for peripheral neuropathy. Findings: Nerve conduction studies were performed in the right upper and lower extremity. The right median motor study recording the abductor pollicis brevis showed a normal amplitude, borderline distal latency and mildly slowed conduction velocity. The right ulnar motor study recording the abductor digiti minimi showed a normal amplitude, normal distal latency and normal conduction velocity. No conduction block was present across the elbow. Borderline differential slowing was seen across the elbow (~10 m/s). Right median minimal F-wave latencies were normal. Right ulnar minimal F-wave latencies were normal. No A waves were present. The right median sensory response recording digit two showed a normal amplitude, normal latency and borderline conduction velocity. The right ulnar sensory response recording digit five showed a borderline normal amplitude, normal latency and normal conduction velocity. The right radial sensory response recording over the extensor snuff box showed a normal amplitude, latency and conduction velocity. The right peroneal motor study recording the extensor digitorum brevis showed a borderline amplitude, normal distal latency and borderline conduction velocity. No conduction block or focal slowing was present across the fibular neck. The right tibial motor study recording the abductor hallucis brevis showed a slightly reduced amplitude, normal distal latency and reduced conduction velocity. Right tibial minimal F-wave latencies were normal. Right sural sensory response showed a normal amplitude and conduction velocity. Right superficial peroneal sensory response could not be obtained and was technically challenging. Needle EMG of the upper and lower extremity muscles was performed. The paraspinal muscles were not sampled due to the common presence of fibrillation potentials in the diabetic population. No denervation was present in any muscle. Motor unit morphology, activation, and recruitment patterns were normal. Impression: This is an abnormal and complex study. There was electrophysiologic evidence of a mild right ulnar neuropathy across the elbow. The pathophysiology was demyelinating with no evidence of secondary axonal loss. There is additional evidence suggesting a borderline median neuropathy across the right wrist. These findings should be interpreted with caution as it would not explain the patient's current symptomatology. The absent superficial peroneal sensory response is of unclear significance and felt to be artifactual in nature. There is no electrophysiologic evidence of a large fiber peripheral polyneuropathy. The tibial motor conduction velocity was reduced, but there were no other findings suggestive of an acquired demyelinating disorder (e.g. conduction block at non-entrapment sites, prolonged/absent F-waves). Finally, there was no electrophysiologic evidence to suggest a polyradiculopathy. Please note: routine nerve conduction studies and needle EMG assess the larger, myelinated motor and sensory fibers. Thus, routine electrodiagnostic studies may be insensitive in detecting a peripheral neuropathy restricted to small fibers alone (i.e., pain, temperature and autonomic fibers). However, most peripheral neuropathies with predominantly small fiber large dysfunction will also involve large fibers to a lesser extent, and will demonstrate abnormalities on electrodiagnostic studies. Thus, clinical correlation is required in the interpretation of this negative electrodiagnostic study if an isolated small fiber neuropathy is considered. Tyrel Pierce D.O. Multi Select Codes Neurology Neurology Interp Codes: 35668-78 [facility] tst done w/nerv tst mcneal (interp) (Qty:2) and 79168-49 [facility] cndj test 9-10 studies (interp)
== END 2021-06-06 23:59 | disposition short-term general hospital (02) ==
PROVIDERS: PCP Nurse Practitioner Primary Care; Referring Provider Psychiatry & Neurology Neurology; Visit Provider Psychiatry & Neurology Neurology
DX: R20.2 Paresthesia of skin (principal)
CPT/HCPCS: 95885; 95912

== ENCOUNTER 2021-07-10 16:54 | Outpatient (CLI) | payer OTHER, SELFPAY ==
[2021-07-13 15:08] LABS: Albumin 3.9 g/dL (2.9-4.4); Alpha-1-Globulins 0.2 g/dL (0.0-0.4); Alpha-2-Globulins 0.7 g/dL (0.4-1.0); Gamma Globulin 0.6 g/dL (0.4-1.8); Immunoglobulin G 571 mg/dL (586-1602); Immunoglobulin M 155 mg/dL (26-217); PROEL- TOTAL PROTEIN 6.4 g/dL (6.0-8.5)
[2021-07-13 15:59] LABS: IMMUNOFIXATION RESULT,S Comment: (.); Immunofixation Urine Comment: (.); Immunoglobulin A 32 mg/dL (87-352)
== END 2021-07-10 23:59 | disposition home or self-care (01) ==
LOC: MTLAB 16:55
PROVIDERS: PCP Nurse Practitioner Primary Care; Referring Provider Psychiatry & Neurology Neurology; Visit Provider Psychiatry & Neurology Neurology
DX: G62.9 Polyneuropathy, unspecified (principal); R20.2 Paresthesia of skin
CPT/HCPCS: 36415; 82784; 84165; 86334; 86335

== ENCOUNTER → 2021-09-28 | Outpatient (CLI) | payer OTHER, SELFPAY ==
[2021-09-28 12:30] LABS: Absolute Lymphocyte Count 1.11 X10^3/uL (0.83-4.51); Absolute Neutrophil Count 2.1 X10^3/uL (2.0-7.7); Basophil# 0.04 X10^3/uL; Basophil% 1.1 % (0-1); Eosinophil# 0.17 X10^3/uL; Eosinophils% 4.6 % (0-5); Hematocrit 41.3 % (37-47); Hemoglobin 13.2 g/dL (12.0-15.0); Lymphocyte # 1.11 X10^3/ul (0.83-4.51); Lymphocyte % 30.1 % (19-41); Mean Corpuscular Hgb 31.8 pg (27.0-32.0); Mean Corpuscular Volume 99.5 fL (81-99); Mean Platelet Vol. 11.4 fl (6.2-12.0); Monocyte# 0.25 X10^3/uL; Monocyte% 6.8 % (0-10); NRBC Flagged by Analyzer 0 % (0-5); Neutrophil # 2.12 X10^3/uL (2.7-7.7); Neutrophil % 57.4 % (47-70); Platelet Count 181 K/mm3 (150-450); RBC Distribution Width CV 14.5 % (11.6-14.6); RBC Distribution Width SD 51.8 fl (35.1-43.9); Red Blood Count 4.15 M/mm3 (4.2-5.4); White Blood Count 3.7 K/mm3 (4.4-11.0)
[2021-09-28 12:38] LABS: ALB/GLOB Ratio 1.3 RATIO (0.9-2.4); AST(SGOT) 18 U/L (15-37); Alanine Aminotransfer ALT/SGPT 42 U/L (13-56); Albumin, Serum 3.9 g/dL (3.2-5.0); Alkaline Phosphatase 88 U/L (45-117); Anion Gap 3 (5-15); BUN 26 mg/dL (7-18); BUN/Creat Ratio 24.5 RATIO (10-20); Calcium,Total 8.9 mg/dL (8.5-10.1); Chloride 105 mmol/L (98-107); Creatinine, Serum 1.06 mg/dL (0.55-1.02); EST Glomerular Filtration Rate 56 mL/min (>60); Est Glom Filt Rate - Afr Amer 68 mL/min (>60); Glucose 156 mg/dL (74-106); Potassium 4.6 mmol/L (3.5-5.1); Protein, Total 6.9 g/dL (6.4-8.2); Sodium Level 141 mmol/L (136-145)
== END | disposition home or self-care (01) ==
LOC: MTLAB 10:25
PROVIDERS: PCP Nurse Practitioner Primary Care; Referring Provider Internal Medicine Rheumatology; Visit Provider Internal Medicine Rheumatology
DX: L40.59 Other psoriatic arthropathy (principal); E11.9 Type 2 diabetes mellitus without complications; M19.041 Primary osteoarthritis, right hand; L40.8 Other psoriasis; I10 Essential (primary) hypertension; I25.10 Atherosclerotic heart disease of native coronary artery without angina pectoris; H40.9 Unspecified glaucoma; E78.5 Hyperlipidemia, unspecified; Z79.899 Other long term (current) drug therapy
CPT/HCPCS: 36415; 80053; 85025

== ENCOUNTER → 2021-11-06 | Outpatient (CLI) | payer OTHER, SELFPAY ==
[2021-11-08 16:10] LABS: Alpha-1-Globulins 0.2 g/dL (0.0-0.4); Alpha-2-Globulins 0.7 g/dL (0.4-1.0); Gamma Globulin 0.7 g/dL (0.4-1.8); Immunoglobulin G 568 mg/dL (586-1602); Immunoglobulin M 157 mg/dL (26-217); PROEL- TOTAL PROTEIN 6.4 g/dL (6.0-8.5)
[2021-11-08 17:34] LABS: IMMUNOFIXATION RESULT,S Comment: (.); Immunoglobulin A 34 mg/dL (87-352)
[2021-11-10 19:50] LABS: Vitamin D 1,25-Dihydroxy 51.7 pg/mL (24.8-81.5)
== END | disposition home or self-care (01) ==
PROVIDERS: PCP Nurse Practitioner Primary Care; Referring Provider Psychiatry & Neurology Neurology; Visit Provider Psychiatry & Neurology Neurology
DX: G62.9 Polyneuropathy, unspecified (principal); L40.50 Arthropathic psoriasis, unspecified
CPT/HCPCS: 36415; 82652; 82784; 84165; 86334; 86335

== ENCOUNTER → 2022-03-15 | Outpatient (CLI) | payer OTHER, SELFPAY ==
[2022-03-15 17:46] LABS: Absolute Lymphocyte Count 1.22 X10^3/uL (0.83-4.51); Absolute Neutrophil Count 3.5 X10^3/uL (2.0-7.7); Basophil# 0.05 X10^3/uL; Basophil% 0.9 % (0-1); Eosinophil# 0.19 X10^3/uL; Eosinophils% 3.6 % (0-5); Hematocrit 38.2 % (37-47); Hemoglobin 12.2 g/dL (12.0-15.0); Lymphocyte # 1.22 X10^3/ul (0.83-4.51); Lymphocyte % 22.8 % (19-41); Mean Corp Hgb Conc 31.9 g/dL (32-36); Mean Corpuscular Hgb 32.2 pg (27.0-32.0); Mean Corpuscular Volume 100.8 fL (81-99); Mean Platelet Vol. 11.7 fl (6.2-12.0); Monocyte# 0.32 X10^3/uL; NRBC Flagged by Analyzer 0 % (0-5); Neutrophil # 3.52 X10^3/uL (2.7-7.7); Platelet Count 198 K/mm3 (150-450); RBC Distribution Width CV 14.6 % (11.6-14.6); RBC Distribution Width SD 53.3 fl (35.1-43.9); Red Blood Count 3.79 M/mm3 (4.2-5.4); White Blood Count 5.3 K/mm3 (4.4-11.0)
[2022-03-15 18:33] LABS: ALB/GLOB Ratio 1.3 RATIO (0.9-2.4); AST(SGOT) 27 U/L (15-37); Alanine Aminotransfer ALT/SGPT 45 U/L (13-56); Albumin, Serum 3.6 g/dL (3.2-5.0); Alkaline Phosphatase 88 U/L (45-117); Anion Gap 5 (5-15); BUN 19 mg/dL (7-18); Chloride 106 mmol/L (98-107); Creatinine, Serum 1.12 mg/dL (0.55-1.02); EST Glomerular Filtration Rate 52 mL/min (>60); Est Glom Filt Rate - Afr Amer 63 mL/min (>60); Globulin 2.8 g/dL (2.2-4.2); Glucose 162 mg/dL (74-106); Protein, Total 6.4 g/dL (6.4-8.2); Sodium Level 140 mmol/L (136-145)
== END | disposition home or self-care (01) ==
LOC: MTLAB 14:38
PROVIDERS: PCP Nurse Practitioner Primary Care; Referring Provider Internal Medicine Rheumatology; Visit Provider Internal Medicine Rheumatology
DX: L40.59 Other psoriatic arthropathy (principal); E11.9 Type 2 diabetes mellitus without complications; M19.041 Primary osteoarthritis, right hand; L40.8 Other psoriasis; I10 Essential (primary) hypertension; I25.10 Atherosclerotic heart disease of native coronary artery without angina pectoris; H40.9 Unspecified glaucoma; E78.5 Hyperlipidemia, unspecified; Z79.899 Other long term (current) drug therapy
CPT/HCPCS: 36415; 80053; 85025

== ENCOUNTER → 2022-03-25 | Outpatient (CLI) | payer OTHER, SELFPAY ==
[2022-03-28 15:08] LABS: Albumin 4.2 g/dL (2.9-4.4); Alpha-1-Globulins 0.2 g/dL (0.0-0.4); Alpha-2-Globulins 0.7 g/dL (0.4-1.0); Free Kappa Light Chains 32.8 mg/L (3.3-19.4); Free Lambda Light Chains 15.4 mg/L (5.7-26.3); Gamma Globulin 0.5 g/dL (0.4-1.8); Immunoglobulin G 564 mg/dL (586-1602); Immunoglobulin M 148 mg/dL (26-217); PROEL- TOTAL PROTEIN 6.4 g/dL (6.0-8.5)
[2022-03-28 16:07] LABS: Immunoglobulin A 32 mg/dL (87-352)
== END | disposition home or self-care (01) ==
LOC: MTLAB 15:06
PROVIDERS: PCP Nurse Practitioner Primary Care; Referring Provider Psychiatry & Neurology Neurology; Visit Provider Psychiatry & Neurology Neurology
DX: G62.9 Polyneuropathy, unspecified (principal)
CPT/HCPCS: 36415; 82784; 83883; 84165; 86334; 86335

== ENCOUNTER 2022-06-15 11:41 | Emergency (ER) | payer OTHER, SELFPAY ==
[2022-06-15 11:42] VITALS: BP 136/78; PULSE 66; RESP 16; TEMP 36.1; O2SAT 98; BMI 25.9
--- NOTE | 2022-06-15 12:03 | EKG12_ITS ---
Test Reason : CP Blood Pressure : / mmHG Vent. Rate : 058 BPM Atrial Rate : 058 BPM P-R Int : 182 ms QRS Dur : 096 ms QT Int : 466 ms P-R-T Axes : 067 -34 109 degrees QTc Int : 457 ms Sinus bradycardia Left axis deviation T wave abnormality, consider anterior ischemia Abnormal ECG Confirmed by MARTA CRUZ, CRISSY ([id number]), film editor HI PEARSON ([id number]) on 06/17/2022 10:46:23 AM Referred By: ABEBE/MAI Confirmed By:CRISSY LOZANO MD
[2022-06-15 12:12] VITALS: BP 137/83; PULSE 57; RESP 14; O2SAT 98
--- NOTE | 2022-06-15 12:15 | RAD_ITS ---
EXAM: XR CHEST, 1 VIEW CLINICAL INDICATION: chest pain TECHNIQUE: Frontal view of the chest. This report was created using [employer] report generation technology. COMPARISON: XR Chest dated 03/20/2019 FINDINGS: LUNGS AND PLEURAL SPACES: Prominence of the pulmonary outflow tract again noted. No pneumothorax. No effusion. HEART: Normal heart size. MEDIASTINUM: No mediastinal or hilar mass. BONES/JOINTS: Sternotomy wires remain in place. Chronic fractures of the left sixth and seventh ribs. SOFT TISSUES: Normal. RAD/Chest 1 View (Portable) IMPRESSION: No acute cardiopulmonary abnormality. No interval change. Electronically Signed: Alexandru Khalil MD at 12:33 EST ,
[2022-06-15 12:17] LABS: Absolute Lymphocyte Count 1.06 X10^3/uL (0.83-4.51); Absolute Neutrophil Count 3.2 X10^3/uL (2.0-7.7); Basophil# 0.03 X10^3/uL; Basophil% 0.6 % (0-1); Eosinophil# 0.15 X10^3/uL; Eosinophils% 3.1 % (0-5); Hematocrit 38.6 % (37-47); Hemoglobin 12.8 g/dL (12.0-15.0); Lymphocyte # 1.06 X10^3/ul (0.83-4.51); Lymphocyte % 21.8 % (19-41); Mean Corp Hgb Conc 33.2 g/dL (32-36); Mean Corpuscular Hgb 33.1 pg (27.0-32.0); Mean Corpuscular Volume 99.7 fL (81-99); Mean Platelet Vol. 10.6 fl (6.2-12.0); Monocyte# 0.48 X10^3/uL; Monocyte% 9.9 % (0-10); NRBC Flagged by Analyzer 0 % (0-5); Neutrophil # 3.15 X10^3/uL (2.7-7.7); Neutrophil % 64.6 % (47-70); Platelet Count 184 K/mm3 (150-450); RBC Distribution Width CV 14.9 % (11.6-14.6); RBC Distribution Width SD 53.4 fl (35.1-43.9); Red Blood Count 3.87 M/mm3 (4.2-5.4); White Blood Count 4.9 K/mm3 (4.4-11.0)
[2022-06-15 12:36] LABS: Anion Gap 4 (5-15); BUN 20 mg/dL (7-18); Calcium,Total 9.3 mg/dL (8.5-10.1); Chloride 108 mmol/L (98-107); Creatinine, Serum 0.91 mg/dL (0.55-1.02); EST Glomerular Filtration Rate 67 mL/min (>60); Est Glom Filt Rate - Afr Amer 81 mL/min (>60); Estimated Creatinine Clearance 54.64 ml/min; Glucose 185 mg/dL (74-106); Potassium 3.8 mmol/L (3.5-5.1); Sodium Level 142 mmol/L (136-145); Troponin-I HS < 3 pg/mL (3.0-54.0)
--- NOTE | 2022-06-15 13:31 | EDS_ITS ---
HPI History of Present Illness Chief Complaint: Chest Pain Narrative Narrative: 62-year-old female presenting with chest pain. She states its on the retrosternal region and radiates to the left. Its worse with picking up her grandson and with laying on left side. She does not have any lightheadedness, dizziness, dyspnea on exertion, cough, fever, shortness of breath. Patient states that she has tried Tylenol at home but is not able to take anti- inflammatories because she is on methotrexate. States that she does not believe this is a cardiac issue that she has had cardiac problems in the past. She states he tried to call her primary care physician who told her to come to the emergency room. She also states that she tried to call her cardiology office however she did not get a call back right away so she decided to come to the emergency room for evaluation. [facility] Medical History Acute appendicitis Atherosclerotic heart disease of [place] coronary artery with other forms of angina pectoris COVID-19 virus detected (05/27/20) Disorder of the skin and subcutaneous tissue, unspecified Dysuria Essential (primary) hypertension History of chicken pox History of chlamydia infection History of ectopic History of wrist fracture (06/22/21) Hyperlipidemia Hyperlipidemia due to type 2 diabetes mellitus Persistent cough Posterior vitreous detachment of right eye Stroke Type 2 diabetes mellitus Urinary urgency Home Medications aspirin 81 mg chewable tablet 81 mg PO DAILY@0800 04/09/13 [History Last Taken 07/30/17] azelastine 137 mcg (0.1 %) nasal spray aerosol 1 spray intranasal DAILY PRN Congestion 08/30/19 [History Last Taken Unknown] folic acid 1 mg tablet 2 mg PO DAILY 08/30/19 [History Last Taken Unknown] multivitamin (Daily Multi-Vitamin tablet) 1 tab PO DAILY 08/30/19 [History Last Taken Unknown] latanoprost 0.005 % eye drops 1 drp ophthalmic (eye) QHS 04/06/20 [History Last Taken Unknown] metformin 500 mg tablet,extended release 24 hr 1,000 mg PO DINNER 04/06/20 [History Last Taken Unknown] methotrexate sodium 2.5 mg tablet 15 mg PO YUSUF 04/06/20 [History Last Taken Unknown] lisinopril 10 mg tablet 10 mg PO DAILY #90 tabs 11/19/21 [Rx Last Taken Unknown] polyethylene glycol 3350 17 gram/dose oral powder (Miralax) 17 g PO DAILY PRN bowels 01/01/22 [History Last Taken Unknown] prednisone 10 mg tablet 10 mg PO DAILY PRN arthritis 01/01/22 [History Last Taken Unknown] rosuvastatin 20 mg tablet 20 mg PO DAILY #90 tabs 01/01/22 [Rx Last Taken Unknown] cholecalciferol (vitamin D3) 1,250 mcg (50,000 unit) capsule 1,250 mcg PO QWEEK #4 caps 03/25/22 [Rx Last Taken Unknown] escitalopram oxalate 10 mg tablet 10 mg PO DAILY 06/15/22 [History Last Taken Unknown] trazodone 50 mg tablet 50 mg PO QHS 06/15/22 [History Last Taken Unknown] Allergy/AdvReac Type Severity Reaction Status Date / Time Bleach (Sodium Hypochlorite) Allergy Mild unknown Verified 06/15/22 11:44 ibuprofen [From Motrin] Allergy EAR Verified 06/15/22 11:44 SWELLING Metronidazole HCl Allergy DIFFICULTY Verified 06/15/22 11:44 [From Flagyl] BREATHING nickel [Nickel] Allergy RED, Verified 06/15/22 11:44 INFECTED Beta-Blockers AdvReac NEEDS Verified 06/15/22 11:44 (Beta-Adrenergic Bloc FOLLOW-UP Family History Mother CAD (coronary artery disease) Alcoholism Anxiety Arthritis Depression Osteoporosis Mental disorder Psychiatric care Suicide attempt Thyroid disorder Heart disease Sister Hypertension Alcoholism Father Colon cancer Myocardial infarction Heart disease 50s Brother Thyroid disorder Sister Melanoma Grandmother CAD (coronary artery disease) 35 Other Cerebral aneurysm Surgical History H/O coronary artery bypass surgery (06/14/12) History of bladder repair surgery History of History of coronary artery stent placement (06/21/14) History of total hysterectomy Social History Smoking Status: Former smoker Tobacco: How many years used: 7 how long ago did patient quit smoking: About 40 years ago second hand exposure: No alcohol intake: former substance use type: former substance user and marijuana caffeine: Yes Type: carbonated beverages and coffee what type of physical activity do you participate in: none seatbelt use: always do you feel safe at home: Yes ROS ROS ED Constitutional Constitutional ED: Denies chills or fever(s) Eyes Eyes: Denies blurry vision or change in vision ENT ENT ED: Denies rhinorrhea or sore throat Cardiovascular Cardiovascular: Reports as per HPI Respiratory/Chest Respiratory/Chest: Denies cough or dyspnea Gastrointestinal Gastrointestinal: Denies abdominal pain, nausea or vomiting Genitourinary Genitourinary ED: Denies dysuria or hematuria Musculoskeletal Musculoskeletal: Denies arthralgias or back pain Integumentary Denies abscess or Abrasions Neurologic Neurologic: Denies headache(s) Psychiatric Psychiatric: Denies anxiety or depression Endocrine Endocrinology: Denies cold intolerance or heat intolerance EXAM Physical Exam Const Vital Signs: 06/15/22 11:42 06/15/22 12:11 06/15/22 12:12 Temperature 97.0 F L Temperature Source Temporal Pulse Rate 66 57 L Respiratory Rate 16 14 Respiratory Effort Normal Non-Labored Blood Pressure 136/78 H 137/83 H Blood Pressure Mean 97 101 Pulse Ox 98 98 Oxygen Delivery Method Room Air Room Air Positive well nourished General Appearance ED: NAD; Negative for pallor HEENT Reports moist mucous membranes normocephalic and atraumatic Eyes PERRL and EOMs intact bilaterally Resp normal respiratory effort and clear to auscultation bilaterally Auscultation: Negative for rales, rhonchi or wheezes Cardio regular rate and regular rhythm GI normal to inspection, nondistended, normoactive bowel sounds Neuro oriented x3 and CN's II-XII intact bilaterally Sensorium / Orientation: awake and alert Skin no rashes or lesions noted General Skin Exam: Negative for jaundice or pallor Heart Score History: Slightly/Non-Suspicious ECG: Normal Age: >45 - <65 years Risk Factors: >/= 3 Risk Factors or History of CAD Troponin: </= Normal Limit Score: 3 MDM MDM MDM Narrative Medical decision making narrative: Patient presented with chest pain that she has had for 4 days now. She reports it is constant. She reports that its in the center of her chest and radiates to the left. She also states it is worse with lifting up her grandchild and with laying on her left side. There is no reproducible pain to palpation however I am able to reproduce this with movement and with resistance against the left arm. She states other than that she feels well. EKG was obtained and this shows a sinus rhythm with a ventricular rate of 58 bpm significant interval change from previous EKG on 03/24/2019. CBC was ordered to assess for white blood cell count, differential. White blood cell count is 4.9. Hemoglobin 12.8. Platelets 24. There are no other atypical cells. Renal function electrolytes within normal limits. Glucose slightly elevated at 185 without anion gap. High-sensitivity troponin is less than 3 with 4 days of constant pain so I do not believe she needs a delta troponin. She is PERC negative. Chest x-ray was obtained and on my interpretation shows no acute cardiopulmonary process. Radiologist interprets this and agrees. Discussed with Dr. Cesar who feel she stable for discharge home and follow-up with cardiology. Given that her pain is likely musculoskeletal I did offer her muscle relaxers for home. She was amenable to this. Return precautions were discussed. Impression: 1. Atypical chest pain Lab Data Attestation: I reviewed the patient's lab results. Labs: Laboratory Results - last 24 hr 06/15/22 06/15/22 12:00 12:00 WBC 4.9 RBC 3.87 L Hgb 12.8 Hct 38.6 MCV 99.7 H MCH 33.1 H MCHC 33.2 RDW Std Deviation 53.4 H RDW Coeff of [place] 14.9 H Plt Count 184 MPV 10.6 Immature Gran % (Auto) 0.000 Neut % (Auto) 64.6 Lymph % (Auto) 21.8 [place] % (Auto) 9.9 Eos % (Auto) 3.1 Baso % (Auto) 0.6 Absolute Neuts (auto) 3.2 Absolute Lymphs (auto) 1.06 Nucleated RBC % 0 Sodium 142 Potassium 3.8 Chloride 108 H Carbon Dioxide 30.0 Anion Gap 4 L BUN 20 H Creatinine 0.91 Estim Creat Clear Calc 54.64 Est GFR (MDRD) Af Amer 81 Est GFR (MDRD) Non-Af 67 BUN/Creatinine Ratio 22.0 H Glucose 185 H Calcium 9.3 Troponin I High Sens < 3 L Radiography Diagnostic Testing: Clinical Impression(s) from Imaging Studies Chest X-Ray 06/15/22 12:15 IMPRESSION: No acute cardiopulmonary abnormality. No interval change. Electronically Signed: Alexandru Khalil MD at 12:33 EST , Discharge Plan Triage Chief Complaint: Chest Pain ED Provider: Antelmo Mina Dx/Rx/DC Orders Prescriptions: No Action azelastine 137 mcg (0.1 %) aerosol,spray 1 spray INTRANASAL DAILY PRN (Reason: Congestion) multivitamin [Daily Multi-Vitamin] Tablet 1 tab PO DAILY folic acid 1 mg tablet 2 mg PO DAILY methotrexate sodium 2.5 mg tablet 15 mg PO YUSUF metformin 500 mg tablet extended release 24 hr 1,000 mg PO DINNER Label Comments: TAKE 2 TABLETS BY MOUTH EVERY DAY latanoprost 0.005 % drops 1 drp OPHTHALMIC QHS Label Comments: INSTILL 1 DROP IN LEFT EYE NIGHTLY polyethylene glycol 3350 [Miralax] 17 gram/dose powder 17 g PO DAILY PRN (Reason: bowels) prednisone 10 mg tablet 10 mg PO DAILY PRN (Reason: arthritis) rosuvastatin 20 mg tablet 20 mg PO DAILY Qty: 90 3RF cholecalciferol (vitamin D3) 1,250 mcg (50,000 unit) capsule 1,250 mcg PO QWEEK Qty: 4 5RF aspirin 81 MG tablet,chewable 81 mg PO DAILY@0800 Label Comments: thinner trazodone 50 mg Tablet 50 mg PO QHS escitalopram oxalate 10 mg Tablet 10 mg PO DAILY lisinopril 10 mg tablet 10 mg PO DAILY Qty: 90 4RF Primary Care Provider: Charles Raza NP Referrals: Charles Raza NP, [facility] [Primary Care Provider] -
[2022-06-15 13:52] VITALS: BP 117/78; PULSE 88; RESP 18; TEMP 36.6; O2SAT 99
== END 2022-06-15 13:52 | disposition home or self-care (01) ==
PROVIDERS: Emergency Provider Student in an Organized Health Care Education/Training Program; PCP Nurse Practitioner Primary Care; Visit Provider Student in an Organized Health Care Education/Training Program
DX: R07.89 Other chest pain (principal); E11.9 Type 2 diabetes mellitus without complications; I10 Essential (primary) hypertension; E78.5 Hyperlipidemia, unspecified; I25.10 Atherosclerotic heart disease of native coronary artery without angina pectoris; Z86.16 Personal history of COVID-19; Z86.73 Personal history of transient ischemic attack (TIA), and cerebral infarction without residual deficits; Z87.891 Personal history of nicotine dependence; Z95.5 Presence of coronary angioplasty implant and graft; Z95.1 Presence of aortocoronary bypass graft; Z79.82 Long term (current) use of aspirin; Z79.899 Other long term (current) drug therapy; Z79.84 Long term (current) use of oral hypoglycemic drugs
CPT/HCPCS: 71045; 80048; 84484; 85025; 93005; 99284; A4216

== ENCOUNTER → 2022-08-13 | Outpatient (CLI) | payer OTHER, SELFPAY ==
[2022-08-13 15:29] LABS: AST(SGOT) 20 U/L (15-37); Alanine Aminotransfer ALT/SGPT 37 U/L (13-56); Albumin, Serum 3.7 g/dL (3.2-5.0); Alkaline Phosphatase 81 U/L (45-117); Cholesterol 167 mg/dL (200); Globulin 2.9 g/dL (2.2-4.2); High Density Lipoprotein 42 mg/dL; Protein, Total 6.6 g/dL (6.4-8.2); Triglycerides 187 mg/dL; Very Low Density Lipoprotein 37 mg/dL (5-40)
== END | disposition home or self-care (01) ==
LOC: LAB 13:40
PROVIDERS: PCP Nurse Practitioner Primary Care; Referring Provider Internal Medicine Cardiovascular Disease; Visit Provider Internal Medicine Cardiovascular Disease
DX: E78.5 Hyperlipidemia, unspecified (principal)
CPT/HCPCS: 36415; 80061; 80076

== ENCOUNTER → 2022-09-25 | Outpatient (CLI) | payer OTHER, SELFPAY ==
--- NOTE | 2022-09-25 14:14 | NEURO ---
NCS and/or EMG Patient Report Ordering Doctor: Dash Carrillo DATE OF SERVICE: 09/25/22 Hermelinda presents for electrodiagnostic testing of the left upper and left lower limb. She reports tingling and numbness in both the arm and leg. Electrodiagnostic findings: Left median motor nerve demonstrates normal distal latency, amplitude with borderline reduced conduction velocity. Left ulnar motor response demonstrates normal distal latency and amplitude with an approximately 20% drop in conduction across the elbow. Left peroneal motor nerve demonstrates prolonged distal latency with reduced amplitude and reduced conduction velocity. Left tibial motor response demonstrates decreased amplitude. Normal left median and ulnar F waves are noted. Absent left tibial and peroneal F waves. Prolonged H reflex bilaterally. Borderline prolonged left median sensory latency at the wrist is noted. Normal ulnar radial sensory responses. Normal left superficial peroneal and sural latencies. On needle EMG, muscles tested in the left upper and left lower limb showed no evidence of denervation with normal motor unit action potentials. Electrodiagnostic Impression: This is an abnormal study. 1. Electrodiagnostic findings are suggestive of left-sided ulnar neuropathy. This is consistent with a mild left cubital tunnel syndrome. 2. Electrodiagnostic findings are suggestive of peripheral polyneuropathy, motor greater than sensory, with evidence of axonal loss in the left peroneal and tibial motor nerves. Correlation has been made to a previous electrodiagnostic study done in May 2021 which did not show evidence of axonal loss in the right lower limb. Would consider repeat electrodiagnostic testing of the right lower limb to better correlate. 3. No electrodiagnostic evidence for cervical or lumbosacral radiculopathy.
== END | disposition home or self-care (01) ==
LOC: PSN 08:30
PROVIDERS: PCP Nurse Practitioner Primary Care; Referring Provider Nurse Practitioner; Visit Provider Nurse Practitioner
DX: R20.2 Paresthesia of skin (principal); G62.9 Polyneuropathy, unspecified
CPT/HCPCS: 95886; 95913

== ENCOUNTER → 2023-04-22 | Outpatient (CLI) | payer OTHER, SELFPAY ==
[2023-04-22 17:40] LABS: Absolute Lymphocyte Count 1.04 X10^3/uL (0.83-4.51); Absolute Neutrophil Count 2.3 X10^3/uL (2.0-7.7); Basophil# 0.07 X10^3/uL; Basophil% 1.8 % (0-1); Eosinophil# 0.14 X10^3/uL; Eosinophils% 3.6 % (0-5); Hematocrit 40.9 % (37-47); Hemoglobin 13.1 g/dL (12.0-15.0); Lymphocyte # 1.04 X10^3/ul (0.83-4.51); Lymphocyte % 26.8 % (19-41); Mean Corpuscular Hgb 32.3 pg (27.0-32.0); Mean Corpuscular Volume 100.7 fL (81-99); Mean Platelet Vol. 10.8 fl (6.2-12.0); Monocyte# 0.35 X10^3/uL; NRBC Flagged by Analyzer 0 % (0-5); Neutrophil # 2.27 X10^3/uL (2.7-7.7); Neutrophil % 58.5 % (47-70); Platelet Count 176 K/mm3 (150-450); RBC Distribution Width CV 14.7 % (11.6-14.6); RBC Distribution Width SD 54.9 fl (35.1-43.9); Red Blood Count 4.06 M/mm3 (4.2-5.4); White Blood Count 3.9 K/mm3 (4.4-11.0)
[2023-04-22 18:16] LABS: ALB/GLOB Ratio 1.3 RATIO (0.9-2.4); AST(SGOT) 23 U/L (15-37); Alanine Aminotransfer ALT/SGPT 38 U/L (13-56); Albumin, Serum 3.8 g/dL (3.2-5.0); Alkaline Phosphatase 82 U/L (45-117); Anion Gap 7 (5-15); BUN 21 mg/dL (7-18); BUN/Creat Ratio 23.9 RATIO (10-20); Calcium,Total 9.3 mg/dL (8.5-10.1); Chloride 105 mmol/L (98-107); Creatinine, Serum 0.88 mg/dL (0.55-1.02); EST Glomerular Filtration Rate 69 mL/min (>60); Est Glom Filt Rate - Afr Amer 83 mL/min (>60); Globulin 2.9 g/dL (2.2-4.2); Glucose 126 mg/dL (74-106); Potassium 3.7 mmol/L (3.5-5.1); Protein, Total 6.7 g/dL (6.4-8.2); Sodium Level 141 mmol/L (136-145)
== END | disposition home or self-care (01) ==
LOC: MTLAB 15:16
PROVIDERS: PCP Nurse Practitioner Primary Care; Referring Provider Internal Medicine Rheumatology; Visit Provider Internal Medicine Rheumatology
DX: L40.59 Other psoriatic arthropathy (principal); Z79.899 Other long term (current) drug therapy
CPT/HCPCS: 36415; 80053; 85025

== ENCOUNTER → 2023-09-03 | Outpatient (CLI) | payer OTHER, SELFPAY ==
--- NOTE | 2023-09-03 15:41 | STRESSREP_ITS ---
Stress Test Report Exercise myocardial perfusion stress test. 63-year-old lady with a history of coronary bypass surgery 11 years ago. Stress protocol: Resting EKG demonstrates sinus bradycardia with a rate of 46 bpm resting blood pressure is 122/78 mmHg. anterior T wave inversions are noted. The patient exercised according to the regular Lalo protocol for a total duration of 8 minutes and 22 seconds attaining a maximum heart rate of 122 bpm which was 78% of maximum predicted heart rate; the maximum workload was 10.1 metabolic equivalents. At rest there were T wave inversions noted anteriorly and at peak exercise nonspecific ST changes were noted we did not meet the criteria for ischemia. No clinical angina was noted the test was terminated due to dyspnea. The peak blood pressure was 158/80 with a rate-pressure product of 18,788. Myocardial perfusion protocol. 11.3 mCi of technetium 99m sestamibi was injected at rest. The patient exercise d according to regular Laol protocol for total duration of 8 minutes and 22- second and at peak exercise 33.7 mCi of technetium 99m sestamibi was injected stress images were obtained stress and rest images were reconstructed in comparing the short axis vertical long and horizontal long axis. Gated images were also obtained. Perfusion SPECT analysis: Review of the stress images demonstrate normal uptake of tracer noted in all areas of the myocardium. The resting images similarly demonstrate normal uptake of tracer noted in all areas of the myocardium. No areas of reversibility are noted to suggest ischemia no previous infarct was noted. Gated SPECT analysis: The gated ejection fraction is 77%. Conclusion: Normal exercise myocardial perfusion stress test at a high workload Preserved ejection fraction.
== END | disposition home or self-care (01) ==
LOC: CVS 06:48
PROVIDERS: PCP Nurse Practitioner Primary Care; Referring Provider Nurse Practitioner Family; Visit Provider Nurse Practitioner Family
DX: I10 Essential (primary) hypertension (principal); E78.5 Hyperlipidemia, unspecified; Z95.5 Presence of coronary angioplasty implant and graft; Z95.1 Presence of aortocoronary bypass graft
CPT/HCPCS: 78452; 93017; A9500; A4216

== ENCOUNTER → 2023-12-29 | Outpatient (CLI) | payer OTHER, SELFPAY ==
[2023-12-29 17:54] LABS: Absolute Lymphocyte Count 0.98 X10^3/uL (0.83-4.51); Absolute Neutrophil Count 2.2 X10^3/uL (2.0-7.7); Basophil# 0.03 X10^3/uL; Basophil% 0.8 % (0-1); Eosinophil# 0.19 X10^3/uL; Eosinophils% 4.8 % (0-5); Hematocrit 37.1 % (37-47); Lymphocyte # 0.98 X10^3/ul (0.83-4.51); Lymphocyte % 24.9 % (19-41); Mean Corp Hgb Conc 32.3 g/dL (32-36); Mean Corpuscular Hgb 32.3 pg (27.0-32.0); Mean Corpuscular Volume 99.7 fL (81-99); Mean Platelet Vol. 11.2 fl (6.2-12.0); Monocyte# 0.53 X10^3/uL; Monocyte% 13.5 % (0-10); NRBC Flagged by Analyzer 0 % (0-5); Neutrophil # 2.19 X10^3/uL (2.7-7.7); Neutrophil % 55.7 % (47-70); Platelet Count 153 K/mm3 (150-450); RBC Distribution Width CV 15.4 % (11.6-14.6); RBC Distribution Width SD 56.4 fl (35.1-43.9); Red Blood Count 3.72 M/mm3 (4.2-5.4); White Blood Count 3.9 K/mm3 (4.4-11.0)
[2023-12-29 18:10] LABS: ALB/GLOB Ratio 1.2 RATIO (0.9-2.4); AST(SGOT) 34 U/L (15-37); Alanine Aminotransfer ALT/SGPT 64 U/L (13-56); Albumin, Serum 3.5 g/dL (3.2-5.0); Alkaline Phosphatase 91 U/L (45-117); Anion Gap 4 (5-15); BUN 16 mg/dL (7-18); BUN/Creat Ratio 16.2 RATIO (10-20); Calcium,Total 9.4 mg/dL (8.5-10.1); Chloride 110 mmol/L (98-107); Creatinine, Serum 0.99 mg/dL (0.55-1.02); EST Glomerular Filtration Rate 60 mL/min (>60); Est Glom Filt Rate - Afr Amer 73 mL/min (>60); Glucose 140 mg/dL (74-106); Protein, Total 6.5 g/dL (6.4-8.2); Sodium Level 140 mmol/L (136-145)
== END | disposition home or self-care (01) ==
PROVIDERS: PCP Nurse Practitioner Primary Care; Referring Provider Internal Medicine Rheumatology; Visit Provider Internal Medicine Rheumatology
DX: L40.59 Other psoriatic arthropathy (principal); M19.041 Primary osteoarthritis, right hand; Z79.899 Other long term (current) drug therapy
CPT/HCPCS: 36415; 80053; 85025

== ENCOUNTER → 2025-05-04 | Outpatient (CLI) | payer OTHER, MEDICARE, SELFPAY ==
--- NOTE | 2025-05-04 13:28 | ECHOD_ITS ---
Reason For Study Reason For Study: MURMUR Procedure This was a 2D Doppler, Color Flow transthoracic echocardiogram. The patient is in sinus rhythm. Exam performed in department. Left Ventricle Normal LV size. The left ventricular ejection fraction is 65 %. No regional wall motion abnormalities noted. Right Ventricle Normal RV size. Normal systolic function. Atria Normal left atrium. Normal right atrium. Mitral Valve Normal mitral valve. Tricuspid Valve Normal tricuspid valve. Mild (1+) tricuspid valve insufficiency. Pulmonary artery systolic pressure is 33 mmHg. Aortic Valve Trisinus/trileaflet aortic valve. Pulmonic Valve Normal pulmonic valve. Great Vessels Normal aortic root. The pulmonary artery is normal size. Inferior vena cava collapse with respiration. Pericardium/Pleural No pericardial effusion. MMode/2D Measurements & Calculations LVIDd: 4.2 cm IVSd: 1.0 cm Ao root diam: 3.8 cm LVIDs: 2.1 cm LVPWd: 1.1 cm RVDd: 3.8 cm FS: 49.3 % LAV(MOD-bp): 43.8 ml LVAd ap4: 30.5 cm2 LVAd ap2: 20.6 cm2 LAV(MOD-bp) Indexed: 24.1 ml/m2 LVLd ap4: 8.1 cm LVLd ap2: 7.0 cm LAV(MOD-sp2): 40.8 ml EDV(MOD-sp4): 92.6 ml EDV(MOD-sp2): 50.4 ml LAV(MOD-sp4): 46.2 ml EDV(sp4-el): 96.9 ml EDV(sp2-el): 51.7 ml LVAs ap4: 14.0 cm2 LVAs ap2: 9.0 cm2 LVLs ap4: 5.6 cm LVLs ap2: 5.3 cm ESV(MOD-sp4): 30.5 ml ESV(MOD-sp2): 13.0 ml ESV(sp4-el): 29.6 ml ESV(sp2-el): 13.0 ml EF(MOD-sp4): 67.1 % EF(MOD-sp2): 74.3 % EF(sp4-el): 69.5 % SV(MOD-sp4): 62.1 ml SV(MOD-sp2): 37.5 ml EDV(MOD-bp): 75.1 ml SI(MOD-sp4): 34.2 ml/m2 SI(MOD-sp2): 20.6 ml/m2 ESV(MOD-bp): 20.5 ml EF(MOD-bp): 72.7 % SV(sp4-el): 67.3 ml LA dimension(2D): 2.7 cm LA A4 area: 16.7 cm2 RA A4 area: 12.0 cm2 TAPSE: 1.5 cm Time Measurements MV dec time: 0.28 sec Doppler Measurements & Calculations MV E max josé: 91.8 cm/sec Lat Peak E' José: 10.6 cm/sec Med Peak E' José: 8.0 cm/sec MV A max josé: 90.2 cm/sec E/E' lat: 8.6 E/E' med: 11.5 MV E/A: 1.0 Ao V2 max: 183.8 cm/sec LV V1 max: 138.9 cm/sec MV dec slope: 333.7 cm/sec2 Ao max P.5 mmHg LV V1 max P.7 mmHg Ao V2 mean: 118.7 cm/sec LV V1 mean P.7 mmHg Ao mean P.6 mmHg LV V1 mean: 87.4 cm/sec Ao V2 VTI: 43.1 cm LV V1 VTI: 32.8 cm AV (velocity ratio): 0.76 PA V2 max: 98.6 cm/sec TR max josé: 269.5 cm/sec TR max P.0 mmHg ECHO/Echo Complete Interpretation Summary Normal LV size. The left ventricular ejection fraction is 65 %. Pulmonary artery systolic pressure is 33 mmHg. Structurally normal valves. Ordering Physician: Brent Csear Referring Physician: Charles Raza Performed By: Ashia Ward RDCS
== END | disposition home or self-care (01) ==
LOC: CVS 13:27
PROVIDERS: PCP Nurse Practitioner Primary Care; Referring Provider Internal Medicine Cardiovascular Disease; Visit Provider Internal Medicine Cardiovascular Disease
DX: R01.1 Cardiac murmur, unspecified (principal); I10 Essential (primary) hypertension; E78.5 Hyperlipidemia, unspecified; Z95.5 Presence of coronary angioplasty implant and graft
CPT/HCPCS: 93306